=== PATIENT | male | born 1935 | race Caucasian/White ===

== ENCOUNTER 2017-08-27 13:30 | Emergency (ER) | payer MEDICARE, BC ==
[~2017-08-27] VITALS: Ht 177.8 cm; Wt 86.6 kg
--- NOTE | 2017-08-27 13:36 | ED Neurological Problem ---
General Chief Complaint: General Problems/Pain Stated Complaint: CONFUSION Source: patient, EMS Exam Limitations: no limitations History of Present Illness Time seen by provider: 13:35 Initial Comments To ER per EMS from [facility] with reports of hypotension and altered mental status. Patient had finished his 4 hour dialysis treatment when the nurses noticed "he's not acting right". EMS arrived on scene and found the patient to have some questionable slurred speech as well as hypotension at 92/ 40. He was given 250 mL of normal saline and brought to the emergency room. Timing/Duration: 1 hour, 1 week Severity: moderate Associated Symptoms: confusion Allergies and Home Medications Allergies Coded Allergies: No Known Drug Allergies (Unverified , 08/27/17) Home Medications Levofloxacin 500 Mg Tablet, 500 MG PO every other day, #4 begin on 08/29/16 Prescribed by: LUDIVINA DEL ANGEL on 08/27/17 1534 Constitutional: see HPI Eyes: No Symptoms Reported Ears, Nose, Mouth, Throat: no symptoms reported Respiratory: no symptoms reported Cardiovascular: no symptoms reported Genitourinary: no symptoms reported Musculoskeletal: no symptoms reported Skin: no symptoms reported Psychiatric/Neurological: No Symptoms Reported Physical Exam Vital Signs Vital Sign - Last 12Hours 08/27/17 13:32 Temp 96.0 Pulse 83 Resp 19 Pulse Ox 94 O2 Delivery Room Air Capillary Refill : General Appearance: WD/WN, no apparent distress HEENT: PERRL/EOMI, normal ENT inspection Neck: non-tender, full range of motion, supple Respiratory: no respiratory distress Cardiovascular: regular rate, rhythm, no murmur Gastrointestinal: normal bowel sounds, non tender Extremities: normal range of motion, non-tender Neurologic/Psychiatric: alert, normal mood/affect, oriented x 3 (he is alert and oriented to person place time and situation without neurologic deficit except slurred speech. His tongue is incredibly dry and he states that his speech is slurred because his tongue is sticking to the roof of his mouth. He was given a glass of water and had no difficulties with swallowing.) Crainal Nerves: normal hearing, normal speech, PERRL Skin: normal color, warm/dry Progress/Results/Core Measures Results/Orders Lab Results Laboratory Tests Test 08/27/17 13:30 08/27/17 15:00 Range/Units White Blood Count 6.6 4.3-11.0 10^3/uL Red Blood Count 4.51 4.35-5.85 10^6/uL Hemoglobin 12.2 L 13.3-17.7 G/DL Hematocrit 33 L 40-54 % Mean Corpuscular Volume 73 L 80-99 FL Mean Corpuscular Hemoglobin 27 25-34 PG Mean Corpuscular Hemoglobin Concent 37 H 32-36 G/DL Red Cell Distribution Width 15.7 H 10.0-14.5 % Platelet Count 163 130-400 10^3/uL Mean Platelet Volume 9.0 7.4-10.4 FL Neutrophils (%) (Auto) 67 42-75 % Lymphocytes (%) (Auto) 19 12-44 % Monocytes (%) (Auto) 9 0-12 % Eosinophils (%) (Auto) 5 0-10 % Basophils (%) (Auto) 1 0-10 % Neutrophils # (Auto) 4.4 1.8-7.8 X 10^3 Lymphocytes # (Auto) 1.3 1.0-4.0 X 10^3 Monocytes # (Auto) 0.6 0.0-1.0 X 10^3 Eosinophils # (Auto) 0.3 0.0-0.3 10^3/uL Basophils # (Auto) 0.0 0.0-0.1 10^3/uL Sodium Level 138 135-145 MMOL/L Potassium Level 3.7 3.6-5.0 MMOL/L Chloride Level 102 98-107 MMOL/L Carbon Dioxide Level 27 21-32 MMOL/L Anion Gap 9 5-14 MMOL/L Blood Urea Nitrogen 8 7-18 MG/DL Creatinine 1.81 H 0.60-1.30 MG/DL Estimat Glomerular Filtration Rate 36 BUN/Creatinine Ratio 4 Glucose Level 156 H 70-105 MG/DL Calcium Level 8.1 L 8.5-10.1 MG/DL Total Bilirubin 0.4 0.1-1.0 MG/DL Aspartate Amino Transf (AST/SGOT) 21 5-34 U/L Alanine Aminotransferase (ALT/SGPT) 22 0-55 U/L Alkaline Phosphatase 84 40-136 U/L Total Protein 6.4 6.4-8.2 GM/DL Albumin 3.3 3.2-4.5 GM/DL Urine Color YELLOW Urine Clarity SLIGHTLY CLOUDY Urine pH 5 5-9 Urine Specific [place] 1.015 L 1.016-1.022 Urine Protein 3+ H NEGATIVE Urine Glucose (UA) NEGATIVE NEGATIVE Urine Ketones NEGATIVE NEGATIVE Urine Nitrite NEGATIVE NEGATIVE Urine Bilirubin NEGATIVE NEGATIVE Urine Urobilinogen NORMAL NORMAL MG/DL Urine Leukocyte Esterase NEGATIVE NEGATIVE Urine RBC (Auto) NEGATIVE NEGATIVE Urine RBC RARE /HPF Urine WBC RARE /HPF Urine Crystals PRESENT H /LPF Urine Amorphous Sediment MOD BERT URATES H /LPF Urine Bacteria NEGATIVE /HPF Urine Casts NONE /LPF Urine Mucus NEGATIVE /LPF Urine Culture Indicated NO My Orders Orders - LUDIVINA DEL ANGEL APRN Cbc With Automated Diff (08/27/17 13:34) Comprehensive Metabolic Panel (08/27/17 13:34) Chest 1 View, Ap/Pa Only (08/27/17 13:34) Saline Lock/Iv-Start (08/27/17 13:34) Ua Culture If Indicated (08/27/17 13:42) Blood Culture (08/27/17 14:16) Levofloxacin Tablet (Levaquin Tablet) (08/27/17 15:45) Vital Signs/I&O Vital Sign - Last 12Hours 08/27/17 13:32 Temp 96.0 Pulse 83 Resp 19 B/P (MAP) Pulse Ox 94 O2 Delivery Room Air Departure Communication (Admissions) Progress Notes Due to concern of possible pneumonia on chest x-ray though this could also be atelectasis we will treat with Levaquin 750 mg today then 500 mg every other day. He does not have fevers or white count. Blood pressure here has been 105- 112 systolic and he is without symptoms stating that he feels fine. Impression Impression: Primary Impression: Volume depletion Additional Impression: Atelectasis Disposition: 01 HOME, SELF-CARE Condition: Stable Departure-Patient Inst. Decision time for Depature: 15:32 Referrals: VELMA MELENDREZ DO (PCP/Family) Primary Care Physician Patient Instructions: NO INSTRUCTIONS GIVEN Add. Discharge Instructions: 1. Antibiotics as directed. Return to ER for any concerns All discharge instructions reviewed with patient and/or family. Voiced understanding. Scripts Levofloxacin (Levaquin) 500 Mg Tablet 500 MG PO every other day, #4 TAB begin on 08/29/16 Prov: LUDIVINA DEL ANGEL APRN 08/27/17 Copy Copies To 1: VELMA MELENDREZ PETER J APRN Aug 27, 2017 13:36
[2017-08-27 13:42] LABS: BASOPHILS % (AUTO) 1 % (0-10); EOSINOPHILS # (AUTO) 0.3 10^3/uL (0.0-0.3); EOSINOPHILS % (AUTO) 5 % (0-10); HEMATOCRIT 33 % (40-54); HEMOGLOBIN 12.2 G/DL (13.3-17.7); LYMPHOCYTES # (AUTO) 1.3 X 10^3 (1.0-4.0); LYMPHOCYTES % (AUTO) 19 % (12-44); MEAN CORPUSCULAR HEMOGLOBIN 27 PG (25-34); MEAN CORPUSCULAR HGB CONC 37 G/DL (32-36); MEAN CORPUSCULAR VOLUME 73 FL (80-99); MONOCYTES # (AUTO) 0.6 X 10^3 (0.0-1.0); MONOCYTES % (AUTO) 9 % (0-12); NEUTROPHILS # (AUTO) 4.4 X 10^3 (1.8-7.8); NEUTROPHILS % (AUTO) 67 % (42-75); PLATELET COUNT 163 10^3/uL (130-400); RED BLOOD COUNT 4.51 10^6/uL (4.35-5.85); RED CELL DISTRIBUTION WIDTH 15.7 % (10.0-14.5); WHITE BLOOD COUNT 6.6 10^3/uL (4.3-11.0)
--- NOTE | 2017-08-27 13:57 | Diagnostic Imaging Report ---
Patient History: Altered mental status. Technique: Single frontal view of the chest Comparison: None FINDINGS: A right-sided dual-lumen hemodialysis catheter is seen, with the tip projecting over the right atrium. A left-sided pacemaker is in place with leads in expected position. There is moderate cardiomegaly with central vascular congestion. There are bibasilar airspace opacities, may represent atelectasis or infiltrate. Sternotomy wires are noted. There is aortic atherosclerosis. IMPRESSION: 1. Cardiomegaly with marked central vascular congestion. Bibasal airspace opacities may represent atelectasis or infiltrate. Dictated by: Dictated on workstation # [id number]
[2017-08-27 14:06] LABS: ALBUMIN 3.3 GM/DL (3.2-4.5); BILIRUBIN,TOTAL 0.4 MG/DL (0.1-1.0); CALCIUM 8.1 MG/DL (8.5-10.1); CREATININE SERUM 1.81 MG/DL (0.60-1.30); POTASSIUM 3.7 MMOL/L (3.6-5.0); TOTAL PROTEIN 6.4 GM/DL (6.4-8.2)
[2017-08-27 15:06] LABS: BILIRUBIN,URINE NEGATIVE (NEGATIVE); CLARITY,URINE SLIGHTLY CLOUDY; COLOR,URINE YELLOW; GLUCOSE, URINE (UA) NEGATIVE (NEGATIVE); KETONES,URINE NEGATIVE (NEGATIVE); LEUKOCYTE ESTERASE ,URINE NEGATIVE (NEGATIVE); NITRITE,URINE NEGATIVE (NEGATIVE); PH,URINE 5 (5-9); PROTEIN,URINE 3+ (NEGATIVE); UROBILINOGEN,URINE NORMAL (NORMAL)
[2017-08-27 15:25] LABS: BACTERIA,URINE NEGATIVE /HPF; RBC,URINE RARE /HPF; WBC,URINE RARE /HPF
[2017-08-27 15:26] LABS: AMORPHOUS SEDIMENT,UR MOD AMOR URATES /LPF
[2017-08-27] MEDS ORDERED: LEVO500T2 PO (15:34)
[2017-08-27] MEDS ORDERED: LEVOFLOXACIN 750 MG TAB (LEVAQUIN) PO ONE (15:45)
[2017-08-27 16:30] VITALS: BP 130/70
--- OUTSIDE RECORDS SUMMARY | 2017-08-28 23:13 | XMS REPORT ---
Author Author CAESAR ISRAEL [facility] Address [address] [place], [place] [id number] Care Team Providers Care Corn Press Operator Name Role Phone CAESAR ISRAEL PCP Unavailable CAESAR ISRAEL PreferredProvider Unavailable Allergies and Adverse Reactions Name Reaction Notes PENICILLINS SULFA (SULFONAMIDES) Plan of Treatment Not available. Medications Active Name Start Date Estimated Completion Date SIG Comments Xarelto 15 mg oral tablet take 1 tablet (15 mg) by oral route once daily Spiriva with HandiHaler 18 mcg inhalation capsule, w/inhalation device inhale 1 capsule (18 mcg) by inhalation route once daily melatonin 1 mg oral tablet take 3 tablets by oral route QD @ HS Plavix 75 mg oral tablet take 1 tablet (75 mg) by oral route once daily Symbicort 80-4.5 mcg/actuation inhalation HFA aerosol inhaler inhale 2 puffs by inhalation route 2 times per day in the morning and evening terazosin 5 mg oral capsule take 1 capsule (5 mg) by oral route once daily at bedtime carvedilol 6.25 mg oral tablet take 1 tablet (6.25 mg) by oral route 2 times per day with food docusate sodium 100 mg oral capsule take 1 capsule (100 mg) by oral route 2 times per day Senokot 8.6 mg oral tablet take 2 tablets by oral route once daily midodrine 10 mg oral tablet take 1 tablet (10 mg) by oral route as needed for otrhosatic hypotension during dyallsis Problem List Description Status Onset Debility Active 06/05/2017 Advanced chronic obstructive pulmonary disease Active 06/05/2017 Acute on chronic renal failure Active 06/05/2017 History of heart attack Active 06/05/2017 Dialysis patient Active 06/05/2017 Insomnia, unspecified type Active 06/05/2017 Atrial fibrillation with controlled ventricular response Active 06/05/2017 Hypercholesteremia Active 06/05/2017 Hemodialysis-associated hypotension Active 06/05/2017 Constipation, unspecified constipation type Active 06/05/2017 Vital Signs Date Time BP-Sys(mm[Hg] BP-Louann(mm[Hg]) HR(bpm) RR(rpm) Temp WT HT HC BMI BSA BMI Percentile O2 Sat(%) 06/03/2017 2:05:00 PM 123 mmHg 48 mmHg 76 bpm 20 rpm 97 F 201 lbs 72 in 27.26 kg/m2 2.15 m2 92 % Social History Name Description Comments Uses seatbelts Alcohol Unknown Tobacco Unknown if ever smoked History of Procedures Not available. Results Summary Not available. History Of Immunizations Not available. History of Past Illness Name Date of Onset Comments Anemia Hyperlipemia Insomnia, unspecified type Encephalopathy Acute ME, subendocardial Bundle-branch block Cardiac Arrest Ventricular tachycardia Afib Heart Failure COPD Constipated Acute kidney failure Acute circulatory failure Hyperglycemia, unspecified Hypotension Other diseases of trachea and bronchus Bradycardia, sinus Debility 06/05/2017 Advanced chronic obstructive pulmonary disease 06/05/2017 Acute on chronic renal failure 06/05/2017 History of heart attack 06/05/2017 Dialysis patient 06/05/2017 Insomnia, unspecified type 06/05/2017 Atrial fibrillation with controlled ventricular response 06/05/2017 Hypercholesteremia 06/05/2017 Hemodialysis-associated hypotension 06/05/2017 Constipation, unspecified constipation type 06/05/2017 Moderate Chronic Debility Stable Worsening Jun 03 2017 2:05PM Advanced chronic obstructive pulmonary disease Jun 03 2017 2:05PM Acute kidney failure, unspecified Jun 03 2017 2:05PM Chronic kidney disease, unspecified Jun 03 2017 2:05PM History of heart attack Jun 03 2017 2:05PM Dialysis patient Jun 03 2017 2:05PM Insomnia, unspecified type Jun 03 2017 2:05PM Atrial fibrillation with controlled ventricular response Jun 03 2017 2:05PM Hypercholesteremia Jun 03 2017 2:05PM CHF (congestive heart failure) Jun 03 2017 2:05PM Hemodialysis-associated hypotension Jun 03 2017 2:05PM Constipation, unspecified constipation type Jun 03 2017 2:05PM Pacemaker Jun 03 2017 2:05PM Payers Insurance Name Company Name Plan Name Plan Number Policy Number Policy Group Number Start Date Medicare [facility] Medicare RHC [id number] N/A [id number]/A Medicare Part A Medicare - Lab/Xray [id number] N/A History of Encounters Visit Date Visit Type Provider 06/03/2017 Office visit CAESAR LANDEROS
--- OUTSIDE RECORDS SUMMARY | 2017-08-28 23:13 | XMS REPORT | Continuity of Care Document ---
Author Author [facility] Address Unknown Phone Unavailable Allergies There is no data. Medications There is no data. Problems There is no data. Procedures There is no data. Results There is no data. Encounters ACCT No. Visit Date/Time Discharge Status Pt. Type Provider Facility Loc./Unit Complaint [id number] 06/03/2017 10:45:23 06/03/2017 23:59:59 CLS Outpatient CAESAR ISRAEL
== END 2017-08-27 16:30 | disposition home or self-care (01) ==
LOC: ER 13:35
DX: E86.9 Volume depletion, unspecified (principal); J98.11 Atelectasis
CPT/HCPCS: 36415; 71045; 80053; 81000; 85025; 87040